=== PATIENT | female | born 1960 | race Caucasian/White ===

== ENCOUNTER 2016-12-15 11:23 | Day surgery (SDC) | payer OTHER ==
[~2016-12-15 11:23] MED LIST: Buffered Lidocaine 0.9% SYRIN* 5 ML/SYR SYRINGE INTRADERM ONE; Dexamethasone IV* 4 MG/ML 1 ML (4 MG) IV SLOW PU ONE; Famotidine IV* 10 MG/ML 2 ML (20 mg) IV ONE
[2016-12-15] MEDS ORDERED: Dexamethasone IV* 4 MG/ML 1 ML (4 MG) ONE (11:56)
[2016-12-15] MEDS ORDERED: Clindamycin 900 MG IVPREMIX(* 900 MG/50 ML SDV IV ONE (11:56)
[2016-12-15] MEDS ORDERED: Famotidine IV* 10 MG/ML 2 ML (20 mg) ONE (11:56)
[2016-12-15] MEDS ORDERED: Buffered Lidocaine 0.9% SYRIN* 5 ML/SYR SYRINGE ONE (11:56)
[2016-12-15] MEDS ORDERED: BSS OPTH.SOL* BTL ONE (13:24)
[2016-12-15] MEDS ORDERED: Bupivacaine 0.25% EPI 200,000* 30 ML SDV ONE (13:25)
[2016-12-15] MEDS ORDERED: oxyCODONE/Acetamin 5/325 MG* TAB PO PRN (13:29)
[2016-12-15] MEDS ORDERED: Ondansetron INJ* 2 MG/ML VIAL IV PRN (13:29)
[2016-12-15] MEDS ORDERED: Midazolam* 1 MG/ML 5 ML VIAL (5 MG) ONE (13:32)
[2016-12-15] MEDS ORDERED: Ondansetron INJ* 2 MG/ML VIAL ONE (13:32)
[2016-12-15] MEDS ORDERED: Propofol* 10 MG/ML 20 ML BTL IV PUSH ONE (13:32)
[2016-12-15] MEDS ORDERED: fentaNYL* 50 MCG/ML 2 ML VIAL (100 MCG VIAL) ONE (13:32)
[2016-12-15] MEDS ORDERED: Mineral Oil Sterile, TOPICAL* 25 ML BTL ONE (13:33)
[2016-12-15 15:18] VITALS: BP 101/60
== END 2016-12-15 15:41 | disposition home or self-care (01) ==
LOC: OREAST 11:23
PROVIDERS: ATTEND Plastic Surgery
DX: C44.311 Basal cell carcinoma of skin of nose (principal); K51.90 Ulcerative colitis, unspecified, without complications
CPT/HCPCS: A9270-GY; J1100; J2250; J2405; J2704; J3010

== ENCOUNTER 2018-06-02 19:28 | Emergency (ER) | payer OTHER ==
[2018-06-02 20:29] VITALS: BP 120/57
--- NOTE | 2018-06-02 20:42 | UC ---
Respiratory Complaint HPI - HPI Summary HPI Summary: Congestion/ cough x 1 week. Hoarseness and loss of voice with sore throat. Coughing fits, worse with lying down and deep breaths. - History of Current Complaint Chief Complaint: UCGeneralIllness Stated Complaint: COUGH,SORE THROAT Time Seen by Provider: 06/02/18 20:32 Hx Obtained From: Patient ?: No Onset/Duration: Gradual Onset, Lasting Weeks - 1, Worse Since - last 2-3 days Severity Initially: Mild Severity Currently: Moderate Pain Intensity: 0 Character: Cough: Nonproductive Associated Signs And Symptoms: Positive: Wheezing, URI, Nasal Congestion, Hoarseness Related History: Seasonal Allergies - Allergies/Home Medications Allergies/Adverse Reactions: Allergies Allergy/AdvReac Type Severity Reaction Status Date / Time erythromycin base Allergy Rash Verified 06/02/18 20:26 lidocaine Allergy Rash Verified 06/02/18 20:26 Penicillins Allergy Rash Verified 06/02/18 20:26 Sulfa (Sulfonamide Allergy Rash Verified 06/02/18 20:26 Antibiotics) Home Medications: Home Medications Dm/Acetaminophen/Doxylamine [Nighttime Cold-Flu Rlf Sftgl] 1 each PO ONCE [History Confirmed 06/02/18] PMH/Surg Hx/FS Hx/Imm Hx Previously Healthy: Yes Other Cancer History: basal cell skin cancer - Surgical History Surgical History: Yes Surgery Procedure, Year, and Place: C-SECT X2. BASAL CELL REMOVED - Family History Known Family History: Negative: Cardiac Disease, Hypertension - Social History Occupation: Employed Part-time Lives: With Family Alcohol Use: Weekly Alcohol Amount: 2 q 2-3 days Substance Use Type: None Smoking Status (MU): Never Smoked Tobacco Review of Systems All Other Systems Reviewed And Are Negative: Yes ENT: Positive: Sore Throat, Nasal Discharge Respiratory: Positive: Shortness Of Breath, Cough Is Patient Immunocompromised?: No Physical Exam Triage Information Reviewed: Yes Appearance: No Pain Distress, Well-Nourished, Ill-Appearing - mild Vital Signs: Initial Vital Signs Temp 98.4 F 06/02/18 20:23 Pulse 70 06/02/18 20:23 Resp 16 06/02/18 20:23 BP 120/57 06/02/18 20:23 Pulse Ox 99 06/02/18 20:23 Vital Signs Reviewed: Yes Eyes: Positive: Conjunctiva Clear ENT: Positive: Pharynx normal, Nasal congestion - with allergic changes, TMs normal - partially obscurred by wax. Neck exam: Normal Respiratory: Positive: Wheezing - expiratory wheeze, worse with coughing. Cardiovascular Exam: Normal Musculoskeletal Exam: Normal Neurological Exam: Normal Psychological Exam: Normal Skin Exam: Normal UC Diagnostic Evaluation - Laboratory O2 Sat by Pulse Oximetry: 99 Respiratory Course/Dx - Differential Dx/Diagnosis Differential Diagnosis/HQI/PQRI: Asthma, Lower Resp Infection, Sinusitis Provider Diagnosis: Upper respiratory infection, Bronchospasm, acute Discharge - Sign-Out/Discharge Documenting (check all that apply): Patient Departure All imaging exams completed and their final reports reviewed: No Studies - Discharge Plan Condition: Stable Disposition: HOME Prescriptions: predniSONE TAB* [Deltasone 20 MG TAB*] 60 mg PO DAILY #18 tab Patient Education Materials: Bronchospasm (ED), Prednisone (By mouth), How to Use a Metered-Dose Inhaler (ED) Referrals: Arcenio Peres MD [Primary Care Provider] - - Billing Disposition and Condition Condition: STABLE Disposition: Home
[2018-06-02] MEDS ORDERED: predniSONE TAB* 20 MG PO ONE (20:56)
[2018-06-02] MEDS ORDERED: Albuterol HFA INHALER* 8 gm MDI INH ONE (20:56)
== END 2018-06-02 21:17 | disposition home or self-care (01) ==
LOC: UCCORT 19:28
DX: J98.01 Acute bronchospasm (principal); J06.9 Acute upper respiratory infection, unspecified; Z88.0 Allergy status to penicillin; Z88.1 Allergy status to other antibiotic agents; Z88.2 Allergy status to sulfonamides; Z85.828 Personal history of other malignant neoplasm of skin
CPT/HCPCS: 99212; A9270-GY; G0463; J7512

== ENCOUNTER 2019-06-21 11:17 | Emergency (ER) | payer OTHER ==
[2019-06-21 12:23] VITALS: BP 98/64
--- NOTE | 2019-06-21 12:36 | UC ---
Back Pain HPI - HPI Summary HPI Summary: 59 yo with left buttock pain since a fall down stairs about 2 weeks ago. She was carrying a laundry basket when she lost he footing, falling directly on her buttock onto the sharp wooden stair edge. Impact caused her to lose control of her full bladder, but she has not had bowel or bladder symptoms since that time. Walking well, and has not used pain medications, but is concerned about the deformity in her buttock. - History of Current Complaint Chief Complaint: UCLowerExtremity Stated Complaint: BUTTOCKS INJURY Time Seen by Provider: 06/21/19 12:24 Hx Obtained From: Patient Onset/Duration: Sudden Onset, Lasting Weeks - 2.5--happened a few days before [place]. Timing: Constant Severity Initially: Moderate Severity Currently: Mild Pain Intensity: 2 Back Pain: Is Discrete @ - left buttock Character: Aching Aggravating Factor(s): Movement, Other - sitting to the left buttock Alleviating Factor(s): Rest - has not used ice, heat or analgesics Associated Signs And Symptoms: Positive: Swelling, Bruising - had large ecchymosis across the left buttock which has resolved.. Negative: Abdominal Pain, Flank Pain, Bladder Incontinence, Bowel Incontinence - Risk Factors AAA Risk Factors: Negative TAD Risk Factors: Negative Cauda Equina Risk Factors: Negative Epidural Abscess Risk Factors: Negative - Allergies/Home Medications Allergies/Adverse Reactions: Allergies Allergy/AdvReac Type Severity Reaction Status Date / Time erythromycin base Allergy Rash Verified 06/21/19 12:19 lidocaine [From Xylocaine] Allergy Rash Verified 06/21/19 12:19 Penicillins Allergy Rash Verified 06/21/19 12:19 Sulfa (Sulfonamide Allergy Rash Verified 06/21/19 12:19 Antibiotics) Home Medications: Home Medications NK [No Home Medications Reported] 06/21/19 [History Confirmed 06/21/19] PMH/Surg Hx/FS Hx/Imm Hx Previously Healthy: Yes - Surgical History Surgical History: Yes Surgery Procedure, Year, and Place: C-SECT X2. BASAL CELL REMOVED - Family History Known Family History: Positive: Non-Contributory Negative: Cardiac Disease, Hypertension - Social History Occupation: Employed Full-time Lives: With Family Alcohol Use: Weekly Alcohol Amount: 2 q 2-3 days Substance Use Type: None Smoking Status (MU): Never Smoked Tobacco Review of Systems All Other Systems Reviewed And Are Negative: Yes Constitutional: Positive: Negative Skin: Positive: Bruising Eyes: Positive: Negative ENT: Positive: Sore Throat, Nasal Discharge - mild URI symptoms for several days. Respiratory: Positive: Negative Cardiovascular: Positive: Negative - blood pressure is typcially less than 100 systolic. Gastrointestinal: Positive: Negative Genitourinary: Positive: Negative Motor: Positive: Negative Neurovascular: Negative: Decreased Sensation, Decreased Pulses Musculoskeletal: Positive: Other: - has soft tissue bulge on left buttock. Negative: Arthralgia, Myalgia Neurological: Positive: Negative Psychological: Positive: Negative Is Patient Immunocompromised?: No Physical Exam Triage Information Reviewed: Yes Appearance: Well-Appearing, Pain Distress - mild Vital Signs: Initial Vital Signs Temp 98.2 F 06/21/19 12:15 Pulse 68 06/21/19 12:15 Resp 16 06/21/19 12:15 BP 98/64 06/21/19 12:15 Pulse Ox 100 06/21/19 12:15 Eye Exam: Normal ENT: Positive: Pharynx normal, TMs normal Neck: Positive: Supple, Nontender, No Lymphadenopathy Respiratory: Positive: Lungs clear, Normal breath sounds, No respiratory distress Cardiovascular: Positive: RRR, No Murmur Abdomen Description: Positive: Nontender, No Organomegaly, Soft Musculoskeletal Exam: Other - Has mild TTP in the mid thoracic spine. Musculoskeletal: Positive: Strength Intact, ROM Intact - at lumbar spine, both hips. Excellent spinal mobility. SLR is normal. Neurological Exam: Normal Psychological Exam: Normal Skin Exam: Other - Soft compressible swelling with mild tenderness in uppr left buttock, 9 x 7 cm. Faint resolving ecchymosis visible in the buttock cleft and inferior buttock. Back Pain Course/Dx - Course Course Of Treatment: hematoma left buttock--discussed that this will self resolve with time. Heat might help, use otc analgesics as needed. - Differential Dx/Diagnosis Differential Diagnosis/HQI/PQRI: Cauda Equina Syndrome, Herniated Disc, Strain, Other - hematoma left buttock Provider Diagnosis: Traumatic hematoma of buttock Discharge ED - Sign-Out/Discharge Documenting (check all that apply): Patient Departure All imaging exams completed and their final reports reviewed: No Studies - Discharge Plan Condition: Stable Disposition: HOME Patient Education Materials: Hematoma (ED) Referrals: Arcenio Peres MD [Primary Care Provider] - Additional Instructions: The hematoma which resulted from your fall will gradually decrease in size, but there could be a long term care social worker persistent lump or firmness in the area which cannot be prevented. Warm moist compresses might help to speed resolution. Use ibuprofen 600mg up to 3 times daily if needed for pain control. - Billing Disposition and Condition Condition: STABLE Disposition: Home
== END 2019-06-21 13:10 | disposition home or self-care (01) ==
LOC: UCCORT 11:17
DX: S30.0XXA Contusion of lower back and pelvis, initial encounter (principal); W10.9XXA Fall (on) (from) unspecified stairs and steps, initial encounter; Y92.9 Unspecified place or not applicable; Z88.2 Allergy status to sulfonamides; Z88.0 Allergy status to penicillin; Z88.1 Allergy status to other antibiotic agents; Z88.8 Allergy status to other drugs, medicaments and biological substances
CPT/HCPCS: 99211; G0463